=== PATIENT | male | born 1990 | race Caucasian/White ===

== ENCOUNTER 2020-02-07 16:52 | Emergency (ER) | payer SELFPAY ==
[~2020-02-07] VITALS: Ht 177.8 cm; Wt 81.6 kg
[2020-02-07 17:00] VITALS: BP 112/86
[2020-02-07] MEDS ORDERED: HYDROcodone/APAP 5/325 MG 1 TAB TAB PO ONE (17:20)
[2020-02-07] MEDS ORDERED: ONDANSETRON 4 MG ODT PO ONE (17:20)
--- NOTE | 2020-02-07 17:32 | NUR ---
PATIENT PRESENTS TO ED WITH ABD PAIN/NAUSEA/VOMITING/DIARRHEA X2 DAYS. SKIN IS PINK/WARM/DRY; AAOX4 WITH EVEN AND STEADY GAIT; LUNGS CLEAR BL; HR EVEN AND REGULAR; PT DENIES ANY FEVER, CP, SOB, OR COUGH AT THIS TIME; PATIENT STATES PAIN OF 5/10 AT THIS TIME; VSS; PATIENT POSITIONED FOR COMFORT; HOB ELEVATED; BEDRAILS UP X2; BED DOWN. ER MD MADE AWARE OF PT STATUS.
--- NOTE | 2020-02-07 18:34 | NUR ---
HOMELESS BAG/WAIVER GIVEN TO PATIENT
[2020-02-07 18:35] VITALS: BP 112/86
== END 2020-02-07 18:35 | disposition home or self-care (01) ==
LOC: MED 16:52
DX: R10.13 Epigastric pain (principal); Z20.828 Contact with and (suspected) exposure to other viral communicable diseases; R11.2 Nausea with vomiting, unspecified; R19.7 Diarrhea, unspecified
CPT/HCPCS: 99283; Q0162